=== PATIENT | male | born 1955 | race Caucasian/White ===

== ENCOUNTER 2019-02-05 17:02 | Emergency (ER) | payer OTHER ==
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
== END 2019-02-05 17:57 | disposition home or self-care (01) ==
LOC: JP.ED 17:02
DX: K62.5 Hemorrhage of anus and rectum (principal); I10 Essential (primary) hypertension; Z79.899 Other long term (current) drug therapy
CPT/HCPCS: 99283

== ENCOUNTER 2019-09-04 09:35 | Emergency (ER) | payer MEDICARE ==
[2019-09-04] MEDS ORDERED: LORazepam 0.5 MG Tab PO ONE (10:21)
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
== END 2019-09-04 11:08 | disposition home or self-care (01) ==
LOC: JP.ED 09:35
DX: I10 Essential (primary) hypertension (principal); M54.2 Cervicalgia; Z79.899 Other long term (current) drug therapy
CPT/HCPCS: 36415; 80048; 99283; A9270

== ENCOUNTER 2022-09-08 00:16 | Observation (INO) | payer MEDICARE ==
[2022-09-08] MEDS ORDERED: Pantoprazole 40 MG Vial IVPUSH ONE (01:04)
[2022-09-08] MEDS ORDERED: Ondansetron 4 MG/2 ML SDV IVPUSH ONE (01:04)
[2022-09-08] MEDS ORDERED: Sodium Chloride 0.9% 1,000 ML IV SCH (01:15)
[2022-09-08] MEDS ORDERED: HYDROmorphone 0.5 MG/0.5 ML Syringe IVPUSH ONE (01:29)
[2022-09-08 02:02] LABS: ESTIMATED GFR 73 mL/min (>60)
[2022-09-08] MEDS ORDERED: Prochlorperazine 10 MG/2 ML SDV IVPUSH ONE (02:05)
[2022-09-08] MEDS ORDERED: Iopamidol 612 MG/ML 100 ML Bottle IV STA (02:19)
[2022-09-08] MEDS ORDERED: Sodium Chloride 0.9% 50 ML IV STA (02:19)
[2022-09-08] MEDS ORDERED: Alum Hydrox/Mag Hydrox/Simeth 15 ML, Lidocaine 2% 15 ML PO ONE ×2 (02:46)
[2022-09-08] MEDS ORDERED: HYDROmorphone 1 MG/ML Syringe IVPUSH ONE (03:24)
[2022-09-08] MEDS ORDERED: Indocyanine Green 25 MG SDV IV ONE (10:45)
[2022-09-08] MEDS ORDERED: Succinylcholine 200 MG/10 ML MDV ONE (10:58)
[2022-09-08] MEDS ORDERED: Dexamethasone 4 MG/ML SDV ONE (10:58)
[2022-09-08] MEDS ORDERED: Rocuronium 50 MG/5 ML Vial ONE (10:58)
[2022-09-08] MEDS ORDERED: Glycopyrrolate 0.2 MG/ML 5 ML MDV ONE (10:58)
[2022-09-08] MEDS ORDERED: Ondansetron 4 MG/2 ML SDV ONE (10:58)
[2022-09-08] MEDS ORDERED: Propofol 200 MG/20 ML SDV ONE (10:58)
[2022-09-08] MEDS ORDERED: Neostigmine Methylsulfate 1 MG/ML 5 ML Syringe ONE (10:58)
[2022-09-08] MEDS ORDERED: fentaNYL 250 MCG/5 ML SDV ONE ×2 (10:59→11:45)
[2022-09-08] MEDS ORDERED: Piperacillin/Tazobactam/Dext 3.375 GM in Premix Bag 1 BAG IV ONE (11:00)
[2022-09-08] MEDS ORDERED: Bupivacaine 0.5%/EPINEPHrine 1:200,000 50 ML MDV ONE (11:03)
[2022-09-08 11:38] LABS: CORONAVIRUS COVID-19 NAA NEGATIVE (NEGATIVE)
[2022-09-08] MEDS ORDERED: Ketorolac 30 MG/ML SDV ONE (12:00)
[2022-09-08] MEDS ORDERED: Acetaminophen/HYDROcodone 325-5 MG Tab PO PRN (13:33)
[2022-09-08] MEDS ORDERED: Lactated Ringers 1,000 ML IV SCH (14:45)
[2022-09-08] MEDS ORDERED: Piperacillin/Tazobactam 3.375 GM in Sodium Chloride 0.9% 50 ML IV SCH (17:00)
[2022-09-08] MEDS: Piperacillin/Tazobactam/Dext 3.375 GM in Premix Bag 1 BAG IV SCH (17:55)
[2022-09-09] MEDS: Piperacillin/Tazobactam/Dext 3.375 GM in Premix Bag 1 BAG IV SCH ×5 (00:17→23:13)
[2022-09-09 06:31] LABS: ESTIMATED GFR 55 mL/min (>60)
[2022-09-09] MEDS ORDERED: Lactated Ringers 1,000 ML IV SCH (08:15)
[2022-09-09 13:19] LABS: ESTIMATED GFR 55 mL/min (>60)
[2022-09-09] MEDS: Lactated Ringers 1,000 ML IV SCH ×2 (14:34→23:09)
[2022-09-09] MEDS: Heparin Sodium 5,000 Units/ML Vial SUBCUT SCH (16:24)
[2022-09-09] MEDS: amLODIPine 5 MG Tab PO SCH (16:24)
[2022-09-10] MEDS: Heparin Sodium 5,000 Units/ML Vial SUBCUT SCH (03:52)
[2022-09-10 05:29] LABS: ESTIMATED GFR 60 mL/min (>60)
[2022-09-10] MEDS: Piperacillin/Tazobactam/Dext 3.375 GM in Premix Bag 1 BAG IV SCH (06:11)
[2022-09-10] MEDS: amLODIPine 5 MG Tab PO SCH (08:36)
[2022-09-10] MEDS ORDERED: Magnesium Hydroxide 400 MG/5 ML Susp 30 ML Cup PO PRN (08:48)
== END 2022-09-10 10:51 | disposition home or self-care (01) ==
LOC: JP.ED 00:16 → JP.SDS 10:58 → JP.MS 13:33
PROVIDERS: ADMIT Student in an Organized Health Care Education/Training Program; ATTEND Student in an Organized Health Care Education/Training Program
DX: K80.12 Calculus of gallbladder with acute and chronic cholecystitis without obstruction (principal); K82.A1 Gangrene of gallbladder in cholecystitis; E80.6 Other disorders of bilirubin metabolism; N18.9 Chronic kidney disease, unspecified; I10 Essential (primary) hypertension; Z79.899 Other long term (current) drug therapy
CPT/HCPCS: 0241U; 36415; 47562; 74177; 76705; 80053; 82150; 82248; 83690; 83735; 84100; 85025; 85027; 86140; 88304; 93005; 93010; 96361; 96365; 96375; 96376; 99285; A9270; C9113; J0330; J0780; J1100; J1170; J1644; J1885; J2405; J2543; J2704; J2710; J3010; J3490; J7030; J7120; Q9967